=== PATIENT | male | born 2000 | race Caucasian/White ===

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

== ENCOUNTER 2019-05-16 19:48 | Inpatient (IN) | payer BC ==
--- NOTE | 2019-05-16 20:33 | ED ---
Psychiatric Complaint - HPI Summary HPI Summary: Patient is a 19 y/o M presenting to the ED for a psychiatric complaint. Patient is present with his mother. Patient's mother states that the patient has had increased SI and admitted self-harm for the last year to his mother. On 05/16/19 , patient was picked up by his mother after work and the patient reported that he did not like anything about himself and felt his mother would be better off without him. Patient denies fever, myalgia, or headache. Patient was previously taking Vyvanse and an antidepressent, but has not been compliant with the medications and has not followed up with his PCP. Patients mother encouraged the patient to call his PCP. Patient has a PMHx of autism, ADD, and low vitamin D. Patient works at [employer] and lives with his mother. - History Of Current Complaint Chief Complaint: EDSuicidal Time Seen by Provider: 05/16/19 20:22 Hx Obtained From: Patient, Family/Research Project Manager - Mother Onset/Duration: Gradual Onset, Still Present Timing: Constant Severity Initially: Moderate Severity Currently: Moderate Character: Depressed Aggravating Factor(s): Medication Non-compliance Alleviating Factor(s): Nothing Associated Signs And Symptoms: Positive: Negative Has Suicidal: Reports: Thoughts - Allergies/Home Medications Allergies/Adverse Reactions: Allergies Allergy/AdvReac Type Severity Reaction Status Date / Time shellfish derived Allergy Hives Verified 05/16/19 20:08 PMH/Surg Hx/FS Hx/Imm Hx Previously Healthy: Yes Endocrine/Hematology History: Denies: Hx Diabetes Cardiovascular History: Denies: Hx Hypercholesterolemia, Hx Hypertension Sensory History: Denies: Hx Legally Blind, Hx Deafness Opthamlomology History: Denies: Hx Legally Blind EENT History: Denies: Hx Deafness Psychiatric History: Reports: Hx Autism, Other Psychiatric Issues/Disorders - ADD - Surgical History Surgical History: None Surgery Procedure, Year, and Place: None Infectious Disease History: No Infectious Disease History: Denies: Traveled Outside the [place] in Last 30 Days - Family History Known Family History: Positive: Hypertension, Other - ETOH abuse - Social History Occupation: Employed Full-time Lives: With Family Alcohol Use: None Hx Substance Use: No Substance Use Type: Reports: None Hx Tobacco Use: No Smoking Status (MU): Never Smoked Tobacco Review of Systems Negative: Fever Negative: Myalgia Negative: Headache Psychological: Other - Positive SI All Other Systems Reviewed And Are Negative: Yes Physical Exam - Summary Physical Exam Summary: Appearance: Well-appearing, Well-nourished, lying in bed comfortable Skin: Warm, dry, no obvious rash Eyes: sclera anicteric, no conjunctival pallor ENT: mucous membranes moist Neck: deferred Respiratory: No signs of respiratory distress Cardiovascular: Appears well perfused, pulses are nml Abdomen: deferred Musculoskeletal: Moving all 4 extremities without obvious discomfort Neurological: Awake and alert, mentation is normal, speech is fluent and appropriate Psychiatric: affect is normal, does not appear anxious or depressed Triage Information Reviewed: Yes Vital Signs On Initial Exam: Initial Vitals Temp Pulse Resp BP Pulse Ox 98.9 F 99 16 164/96 98 05/16/19 19:58 05/16/19 19:58 05/16/19 19:58 05/16/19 19:58 05/16/19 19:58 Vital Signs Reviewed: Yes Procedures - Sedation Patient Received Moderate/Deep Sedation with Procedure: No Diagnostics - Vital Signs Vital Signs Temp Pulse Resp BP Pulse Ox 05/16/19 19:58 98.9 F 99 16 164/96 98 - Laboratory Result Diagrams: 05/16/19 22:12 05/16/19 22:12 Lab Statement: Any lab studies that have been ordered have been reviewed, and results considered in the medical decision making process. Re-Evaluation - Re-Evaluation First Re-Evaluation Time: 20:36 Change: Unchanged Comment: At 20:36, patient is medically cleared for a MH evaluation. 2nd re-eval Re-Evaluation Time: 11:30 Change: Unchanged Comment: Pt will likely be an admission, MH needs to speak with Dr. Schuster first. There are beds available in the B[facility]. 3rd re-eval Re-Evaluation Time: 12:30 Change: Unchanged Comment: Pt will be voluntarily admitted to [facility] as per Dr. Limon. admission paperwork signed by me Course/Dx - Course Course Of Treatment: Patient is a 19 y/o M presenting to the ED for a psychiatric complaint. Patient is present with his mother. Patient's mother states that the patient has had increased SI and admitted self-harm for the last year to his mother. On 05/16/19, patient was picked up by his mother after work and the patient reported that he did not like anything about himself and felt his mother would be better off without him. Patient denies fever, myalgia, or headache. Patient was previously taking Vyvanse and an antidepressent, but has not been compliant with the medications and has not followed up with his PCP. Patients mother encouraged the patient to call his PCP. Patient has a PMHx of autism, ADD, and low vitamin D. Patient works at [employer] and lives with his mother. At 20:36, patient is medically cleared for a MH evaluation. On exam, unremarkable findings. Laboratory abnormal findings: glucose 106, ALT 66. Patient is a sign out at 07:00 on 05/17/[address] Zack Reddy MD to Dr. Ashley Akhtar MD at shift change, pending re-evaluation and disposition by Dr. Avtar Limon. - Differential Dx/Clinical Impression Provider Diagnosis: Depression Discharge ED - Sign-Out/Discharge Documenting (check all that apply): Sign-Out Patient Signing out patient TO: Ashley Akhtar - 07:00 on 05/17/19 - Discharge Plan Condition: Improved Disposition: PSYCHIATRIC FACILITY-[facility] - Billing Disposition and Condition Condition: IMPROVED Disposition: Psychiatric Facility [facility] - Attestation Statements Document Initiated by Scribe: Yes Documenting Scribe: Marija Haq Provider For Whom Florentin is Documenting (Include Credential): Zack Reddy MD Scribe Attestation: Marija Mills, scribed for Zack Reddy MD on 05/20/19 at 1833. Scribe Documentation Reviewed: Yes Provider Attestation: The documentation as recorded by the Marija olivares accurately reflects the service I personally performed and the decisions made by me, Zack Reddy MD Status of Scribe Document: Viewed
[2019-05-16 22:20] LABS: ABS Basophils 0.1 10^3/ul (0-0.2); ABS Eosinophils 0.1 10^3/ul (0-0.6); ABS Lymphocytes 2.6 10^3/ul (1.0-4.8); ABS Monocytes 0.7 10^3/ul (0-0.8); ABS Neutrophils 4.4 10^3/ul (1.5-7.7); Eosinophil % 1.9 %; Hematocrit 46 % (42-52); Hemoglobin 15.5 g/dL (14.0-18.0); Mean Corpuscular HGB Conc 34 g/dL (31-36); Mean Corpuscular Hemoglobin 30 pg (27-31); Mean Corpuscular Volume 87 fL (80-94); Mean Platelet Volume 8.9 fL (7.4-10.4); Nucleated Red Blood Cells % 0.1; Platelet Count 281 10^3/uL (150-450); Red Blood Count 5.25 10^6 /uL (4.18-5.48); Red Cell Distribution Width 12 % (10-15)
[2019-05-16 22:35] LABS: ALT 66 U/L (7-52); Albumin 4.5 g/dL (3.2-5.2); Albumin/Globulin Ratio 1.6 (1-3); Alkaline Phosphatase 63 U/L (34-104); Blood Urea Nitrogen 8 mg/dL (6-24); CO2 Carbon Dioxide 29 mmol/L (22-32); Calcium 9.6 mg/dL (8.6-10.3); Chloride 104 mmol/L (101-111); EGFR African American 131.9 (>60); Globulin 2.8 g/dL (2-4); Glucose 106 mg/dL (70-100); Sodium 139 mmol/L (135-145); Total Protein 7.3 g/dL (6.4-8.9)
[2019-05-16 22:57] LABS: Anion Gap 6 mmol/L (2-11); Potassium 3.9 mmol/L (3.5-5.0)
[2019-05-16 22:59] LABS: AST 29 U/L (13-39)
[2019-05-16 23:07] LABS: Acetaminophen < 15 mcg/mL; Alcohol < 10 mg/dL (<10); Salicylate < 2.50 mg/dL (<30)
[2019-05-16 23:22] LABS: TSH (Thyroid Stimulating Horm) 1.51 mcIU/mL (0.34-5.60)
--- NOTE | 2019-05-17 07:22 | ED ---
Progress - Progress Note Progress Note: Pt is a signout from Dr. Reddy at 0700 on 05/17/[address] Limon. Re-Evaluation - Re-Evaluation First Re-Evaluation Time: 08:00 Change: Unchanged Comment: Per Dr. Limon, pt is being evaluated. 2nd re-eval Re-Evaluation Time: 11:30 Change: Unchanged Comment: Pt will likely be an admission, needs to speak with Dr. Schuster first. There are beds available in the BSU. 3rd re-eval Re-Evaluation Time: 12:30 Change: Unchanged Comment: Pt will be voluntarily admitted to [facility] as per Dr. Limon. admission paperwork signed by oh Course/Dx - Diagnoses Provider Diagnoses: Depression Discharge ED - Sign-Out/Discharge Documenting (check all that apply): Patient Departure, Receiving Sign-Out Receiving patient FROM: Zack Reddy - Discharge Plan Condition: Stable Disposition: PSYCHIATRIC FACILITY[facility] - Billing Disposition and Condition Condition: STABLE Disposition: Psychiatric Facility [facility] - Attestation Statements Document Initiated by Scribe: Yes Documenting Scribe: Luzmaria Oden Provider For Whom Scribe is Documenting (Include Credential): Ashley Akhtar MD. Scribe Attestation: Luzmaria Mills, santinoibed for Ashley Akhtar MD. on 05/17/19 at 1637. Scribe Documentation Reviewed: Yes Provider Attestation: The documentation as recorded by the scribeLuzmaria accurately reflects the service I personally performed and the decisions made by oh, Ashley Akhtar MD. Status of Scribe Document: Viewed Procedures - Sedation Patient Received Moderate/Deep Sedation with Procedure: No
[2019-05-17] MEDS ORDERED: Acetaminophen TAB* 325 MG PO PRN (11:50)
[2019-05-17] MEDS ORDERED: Al Hydrox/Mg Hydrox/Simet LIQ* 30 ML UDC PO PRN (11:50)
[2019-05-17] MEDS ORDERED: hydrOXYzine HCL TAB* 50 MG PO PRN (11:52)
[2019-05-18] MEDS ORDERED: Influenza VAC *QUAD* 2019-20* 0.5 ML SYRINGE IM ONE (09:00)
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
--- NOTE | 2019-05-18 16:54 | PN ---
BSU: Group Therapy Note - Service Type Service Type: [id number] Group Psychotherapy - Group Participation Patient Participating in Group: Yes Level of Group Participation: Attentive, Spontaneously Participate Relatedness to Group: Well Related - Additional Group Comments Group Comments: Roland was pleasant and cooperative during group. He was participatory and helpful during group, even when the topic threatened to be derailed.
[2019-05-18] MEDS: buPROPion SR TAB.SR* 100 MG PO SCH (17:40)
[2019-05-19] MEDS: buPROPion SR TAB.SR* 100 MG PO SCH ×2 (09:59→17:00)
[2019-05-19] MEDS ORDERED: diPHENhydraMINE PO* 25 MG PO PRN (09:59)
--- NOTE | 2019-05-19 15:16 | PN ---
Subjective - Subjective Date of Service: 05/19/19 Service Type: 81299 Hosp care 15 min low complexity Subjective: Jethro is primarily seclusive but receptive to prompting to join groups. Afterwards, he reported group to be helpful. He states he notices a minute amount of improved mood and energy. He denies side effects from medication. Will change to XL formulary in morning. He reports adequate sleep and appetite. Objective - General Observations Appearance: Unkempt Stature: Overweight Posture: Slumped Eye Contact: Average Behavior/Activity: Slowed - Interaction Observations Attitude Towards Examiner: Cooperative Stated Mood: Euthymic Affect: Full Speech Pattern/Tone: Clear, Appropriate, Normal Volume Thought Process: Coherent Perception: WNL Thought Content: Depressive Hallucination Type: Denies Delusion Type: Denies - Cognitive Function Orientation: A&O x 4 Level of Consciousness: Alert Cognition: WNL Estimated Intelligence: Normal Insight: WNL Judgment Within Normal Limits: No Ability to Make Reasonable Decisions: Moderately Impaired - Medication Compliance Cooperative with Inpatient Medication Regimen: Yes - Group Participation Participates in Group Activities: Partial Assessment - Assessment Merits Inpatient Hospitalization: For Immediate Safety, For Stabilization Inpatient DSM-V Dx: F33.1 Clinical Impression: First psychiatric hospitalization for 19yo wm with history of ADHD, inattentive type and Autism Spectrum d/o who presented to ED with his mother due to suicidal ideation. He merits hospitalization for immediate safety and stabilization. Plan - Plan Treatment Plan: Name: ANGELES ROCHA Birthdate: 2000 [id number] continue acute inpatient psychiatric treatment. may decrease to q30min and allow staff pass/computer use per RN discretion. change buproprion to 150mg XL in am. discharge to include PCP and referral to private therapist. Continued Medication Management: Start Medication Medications: Current Medications Acetaminophen (Tylenol Tab*) 650 mg PO Q4H PRN PRN Reason: for pain; or Temp >101 F Al Hydrox/Mg Hydrox/Simethicone (Maalox Plus*) 30 ml PO Q4H PRN PRN Reason: INDIGESTION Bupropion HCl (Wellbutrin Sr Tab*) 100 mg PO 0800,1700 CESAR Last Admin: 05/19/19 09:59 Dose: 100 mg Diphenhydramine HCl (Benadryl Po*) 25 mg PO BEDTIME PRN PRN Reason: INSOMNIA Hydroxyzine HCl (Atarax Tab*) 50 mg PO Q6H PRN PRN Reason: anxiety - Discharge Plan Discharge Plan: Inpatient Hospitalization
[2019-05-20] MEDS: buPROPion SR TAB.SR* 100 MG PO SCH (08:24)
[2019-05-20 09:18] VITALS: BP 108/52
[2019-05-20] MEDS ORDERED: diPHENhydraMINE IV* 50 MG/ML 1 ml VIAL (BENADRYL) ONE (12:36)
[2019-05-20] MEDS ORDERED: diPHENhydraMINE IV* 50 MG/ML 1 ml VIAL (BENADRYL) IM ONE (13:00)
[2019-05-21] MEDS ORDERED: BuPROPion XL* 150 MG TAB.XL PO SCH (09:00)
--- NOTE | 2019-05-23 22:22 | DS ---
CC: [facility]; Dr. Noah Mayer * DISCHARGE SUMMARY: DATE OF ADMISSION: 05/17/19 DATE OF DISCHARGE: 05/20/19 SUPERVISING PHYSICIAN: Dr. Avtar Limon.* (DICTATED BY ELSIE LAINEZ NP) DIAGNOSES: Major depressive disorder, autism spectrum disorder. CONDITION AT TIME OF DISCHARGE: Improved. The patient is euthymic with bright affect. He denies suicidal ideation or passive wish. He has been safe in all checks and in behavioral control. He has been pleasant and interactive with staff and peers at times, primarily seclusive while reading. The patient reported desire to be discharged. He was offered longer hospitalization and declined need. He tolerated starting bupropion and was given followup appointments with his primary care provider and an intake with [facility] for psychotherapy. The patient is discharged to home. MENTAL STATUS EXAM: Roland is a 19-year-old white male, large framed, obese, well groomed, casually dressed in his own clothing. He has short dark brown hair and a reddish renee. He is pleasant upon approach and participates fully in conversation. He is alert and oriented x3. Eye contact is good. Speech is soft, articulate and spontaneous. Concentration good. Memory 3/3. Mood is euthymic with full range of affect. No abnormal psychomotor activity noted. Thought process is logical and goal directed. Thought content is negative for passive wish or suicidal ideation. He denies auditory or visual hallucinations. There are no perceptual disturbances noted. Insight and judgment are good. He appears to have at least an average intellect and his fund of knowledge is adequate. INSTRUCTIONS GIVEN TO PATIENT: A. Medications: Bupropion XL 150 mg p.o. daily. B. Diet: Regular. C. Activity: Ambulation as tolerated. Tobacco cessation is not applicable. There are no pending labs or diagnostic studies. D. Followup care: As above, Dr. Mayer for primary care and [facility] for psychotherapy. E. Substance use followup is not applicable. HOSPITAL COURSE: Part A. Reason for admission: The patient presented to the emergency department with his mother due to suicidal ideation and depressed mood. The patient endorses thoughts of people being better off if he were not around. He endorses anhedonia, depressed mood, decreased energy, and thoughts of self-harm. He recently graduated from high school and has a history of autism spectrum disorder and attention deficit disorder inattentive type. He lives with his mother and stepfather. He works part-time at [employer] and reports liking this job. He states that he has been feeling sad and depressed for approximately a year and about a year ago, he was broken up via text and endorses stress about finances. He reports feeling anxious at times with no apparent etiology. He reports being irritable and edgy when anxious. He denies suicide attempts or harming himself; however, according to the ER report, he had admitted self-harm to his mother. According to collateral from the ER, the patient told his mother he did not like anything about himself and felt that everybody would be better off without him. According to his mother, he is less involved with friends and tends to binge eat. The patient identifies that he engages in emotional eating and he has been decreasingly attending to ADLs. He was prescribed medications for ADHD through his outreach clinician and switched to [facility] this year. He saw Dr. Mayer who continued Vyvanse. The patient has not had Vyvanse or Tenex in the past 2 months. He states that he simply avoids calling the doctor's office and getting a refill or a followup appointment. He has also mentioned to his mother that he does not want to be on this medication forever. The patient reports poor sleeping habits. He states that he is often awake until 1 a.m. and then tries to get up at 6 a.m., but often sleeps until noon or 1 p.m. He denies obsessions, compulsions, or rituals. He reports fears of bees, dense fog , and deep water, but denies severe phobias. He denies HI or . Mother reports that as a child he would become agitated, but never violent towards others. He was diagnosed with autism spectrum disorder, attention deficit disorder inattentive type and selective mutism around 6 years old. Part B. Psychiatric treatment rendered: The patient was admitted to the adult behavioral services unit on voluntary status. Code status is full. He was placed on 15 minute checks for safety. This was decreased to 30 minute observation. He was allowed staff pass, although I am not sure if he actually utilized it or not. He was encouraged to participate in support milieu, individual sessions with staff, and psychoeducational groups. He gave informed consent to start bupropion for both depression and ADHD benefit. On day 2 of admission, the patient denies untoward effects from bupropion. He noted tiny amount of improvement in mood and energy. He reports adequate sleep and appetite. Throughout the hospitalization, the patient declined offer of restarting of Vyvanse as stated above. He declined need for further hospitalization. He attended some groups and reported these to be helpful. The patient was agreeable to follow up with appointments for therapy and primary care. The last day of admission while awaiting for his mother to pick him up, he ate clam chowder, not realizing that it was shellfish derived. He received IM diphenhydramine with good effect. ELSIE LAINEZ NP [id number]/[facility] #: [id number] VERN
== END 2019-05-20 17:16 | disposition home or self-care (01) | DRG 751 ==
LOC: ED 19:48 → BSU 05-17 11:50
PROVIDERS: ADMIT Psychiatry & Neurology Psychiatry; ATTEND Psychiatry & Neurology Psychiatry
DX: F33.1 Major depressive disorder, recurrent, moderate (principal); R45.851 Suicidal ideations; F84.0 Autistic disorder; F90.0 Attention-deficit hyperactivity disorder, predominantly inattentive type; F94.0 Selective mutism; Z81.8 Family history of other mental and behavioral disorders; Z79.899 Other long term (current) drug therapy
CPT/HCPCS: 36415; 80053; 80320; 80329; 84443; 85025; 90686; 90853; 99222; 99231; 99238; 99284; A9270-GY; G0480; J1200